=== PATIENT | female | born 1990 | race Caucasian/White ===

== ENCOUNTER 2023-10-21 13:04 | Outpatient (RCR) | payer OTHER, SELFPAY ==
[2023-10-21 13:10] VITALS: BP 107/60
[2023-10-21] MEDS: INJECTAFER 265 MG IV (13:42)
[2023-10-21 13:46] VITALS: BMI 28.5
[2023-10-21 14:25] VITALS: BP 96/45
== END 2023-10-22 09:30 | disposition home or self-care (01) ==
LOC: OID 13:04
PROVIDERS: ATTENDING PHYSICIAN Family Medicine; FAMILY PHYSICIAN Family Medicine
DX: D50.0 Iron deficiency anemia secondary to blood loss (chronic) (principal); N92.0 Excessive and frequent menstruation with regular cycle
CPT/HCPCS: 96365; J1439

== ENCOUNTER 2023-10-28 13:43 | Outpatient (RCR) | payer OTHER, SELFPAY ==
[2023-10-28 13:50] VITALS: BP 105/42
[2023-10-28] MEDS: INJECTAFER 265 MG IV (14:13)
[2023-10-28 14:50] VITALS: BP 93/47
== END 2023-10-29 10:12 | disposition home or self-care (01) ==
LOC: OID 13:43
PROVIDERS: ATTENDING PHYSICIAN Family Medicine; FAMILY PHYSICIAN Family Medicine
DX: D50.0 Iron deficiency anemia secondary to blood loss (chronic) (principal); N92.0 Excessive and frequent menstruation with regular cycle
CPT/HCPCS: 96365; J1439

== ENCOUNTER 2024-02-25 09:24 | Emergency (ER) | payer OTHER, SELFPAY ==
[2024-02-25] VITALS (7 sets, daily range): BP systolic 87–106; BP diastolic 51–64
--- NOTE | 2024-02-25 09:56 | ED.GENMED ---
History of Present Illness
<Nelida Chamberlain PA-C - Last Filed: 02/25/24 18:27>
General
Chief Complaint: Abdominal Symptoms
Source: patient and family
Exam Limitations: non verbal-adult and developmental stage
Time Seen by Provider: 02/25/24 09:43
Nursing documentation reviewed up to this point in time: agreed with
History of Present Illness
History of Present Illness:
33 y/o F with h/o downs syndrome
adenomyosis, menorrhagia
anemia
primary historian is mother
this is a well cared for 33 y/o F with 5-6 days of dry heaivng/mucus that she was bringing up here and there but she was still eating, not coughing
but then last night she started having a fever, more vomiting/less appetite and sore throat
pt had aleve last night before bed but didn't sleep all night becuase she was uncomfortable
she also is c/o abdomianl pain
pt has not had BM in a week sometimes she is constipated but not usually
mom wasn't sure if there was something going on with her bowels or if this was infection
Past History
<ADRIAN Espinoza Last Filed: 02/25/24 18:27>
Past History
ED Past Medical History: Hypothyroidism, Other (downs syndrome) and Other (Iron deficiency anemia)
Social History
Tobacco: Non-smoker
Alcohol: None
Drug: None
Living: with family
Employment: Employed
Family History
Family History: CAD
Review of Systems
<ADRIAN Espinoza Last Filed: 02/25/24 18:27>
Review of Systems
Allergies reviewed?: Yes
Unable to obtain full review of systems at this time due to: non-verbal
All Other Systems: Not applicable
Phy Exam
<Nelida Chamberlain PA-C - Last Filed: 02/25/24 18:27>
Physical Exam
Physical Exam:
GENERAL: Alert , in no apparent distress, downs syndrome
EYE: pupils equal and reactive
NECK: Supple
ENT: very erytheamtous swollen tonsils and mildly swollen uvula; no exudate
CARDIAC: Regular rate and rhythm .
LUNGS: Clear breath sounds bilaterally, no acute respiratory distress, no wheezes/rales/rhonchi
ABDOMEN: Soft, mild tednerness, no focal tenderness; no r/g, no cvat, normal bowel sounds
NEUROLOGICAL: Alert and oriented, no focal neuro deficits
SKIN: Warm and dry, skin intact.
scarlatina rash, sandpapery to face and chest
MUSCULOSKELETAL: No edema, well perfused.
PSYCH: Normal and appropriate interaction.downs
Course
<Nelida Chamberlain PA-C - Last Filed: 02/25/24 18:27>
Orders/Labs/Results
Orders:
Orders
02/25/24 09:53
0.9% Sodium Chloride 1000 ml [Nss] 1,000 ml IV BOLUS
Ketorolac [Toradol] 15 mg IV NOW STA
Ondansetron Injectable [Zofran] 4 mg IV NOW STA
02/25/24 10:27
COVID-19 Antigen Urgent
Source: Nasal Swab
Complete Blood Count/With Diff Urgent
Lactic Acid Q4H
Comment: CANCEL 2nd LACTIC ACID IF 1st LACTIC ACID IS LESS THAN 2
Monotest Urgent
Influenza A+B Rapid Molecular Urgent
KATERINE Source: Nasal Swab
Specimen Description:
02/25/24 10:35
Rapid Strep Group A Urgent
KATERINE Source: Throat/Pharynx
Specimen Description:
Date Specimen was Collected: 02/25/24
Time Specimen was Collected: 10:34
02/25/24 10:58
Comprehensive Metabolic Panel Urgent
Free T4 Urgent
Lipase Urgent
TSH Reflex To Free T4 Urgent
02/25/24 10:59
Abdominal Series [CR Obstruct Series W/pa Chest] Urgent
Comment:
Reason For Exam: constipated, vomting
02/25/24 11:10
Dexamethasone Sod Phosphate [Decadron] 10 mg IV NOW STA
02/25/24 11:52
CT Abd/pel W Iv And Oral Contr Urgent
Comment:
Reason For Exam: abd pain, nauesa, constipatoin x 1 week
Iohexol [Omnipaque] See Protocol PO NOW STA
02/25/24 13:50
Amoxicillin [Amoxil] 500 mg PO NOW STA
Abnormal Lab Results
02/25/24 02/25/24
10:27 10:58
WBC 13.8 H 10^3/uL
(4.8-10.8)
RBC 4.08 L 10^6/uL
(4.20-5.40)
Hct 34.9 L %
(37.0-47.0)
Abs Immat Gran (auto) 0.1 H 10^3/uL
(0-0.05)
Absolute Neuts (auto) 12.0 H 10^3/uL
(1.4-6.5)
Absolute Lymphs (auto) 0.7 L 10^3/uL
(1.2-3.4)
Absolute Monos (auto) 0.8 H 10^3/uL
(0.1-0.6)
Immature Gran % 0.6 H %
(0-0.5)
Neutrophils % 86.9 H %
(42.2-75.2)
Lymphocytes % 5.4 L %
(20.5-51.1)
Carbon Dioxide 19 L mmol/L
(22-30)
Glucose 100 H mg/dl
(70-99)
Total Protein 5.9 L g/dl
(6.3-8.2)
Albumin 3.2 L g/dl
(3.5-5.0)
TSH (Reflex) 0.10 L uIU/ml
(0.47-4.68)
Free T4 2.20 H ng/dl
(0.78-2.19)
02/25/24 10:27
02/25/24 10:58
Vital Signs
Initial and Last Documented VS:
Initial Vital Signs
Temp Pulse Resp BP Pulse Ox
98.3 F 87 18 87/51 100
02/25/24 09:27 02/25/24 09:27 02/25/24 09:27 02/25/24 09:27 02/25/24 09:27
Last Documented Vital Signs
Temp Pulse Resp BP Pulse Ox
98.3 F 66 16 105/64 97
02/25/24 09:27 02/25/24 15:10 02/25/24 15:10 02/25/24 15:10 02/25/24 15:10
<Armando Nair MD - Last Filed: 02/25/24 13:57>
Orders/Labs/Results
Orders:
Orders
02/25/24 09:53
0.9% Sodium Chloride 1000 ml [Nss] 1,000 ml IV BOLUS
Ketorolac [Toradol] 15 mg IV NOW STA
Ondansetron Injectable [Zofran] 4 mg IV NOW STA
02/25/24 10:27
COVID-19 Antigen Urgent
Source: Nasal Swab
Complete Blood Count/With Diff Urgent
Lactic Acid Q4H
Comment: CANCEL 2nd LACTIC ACID IF 1st LACTIC ACID IS LESS THAN 2
Monotest Urgent
Influenza A+B Rapid Molecular Urgent
KATERINE Source: Nasal Swab
Specimen Description:
02/25/24 10:35
Rapid Strep Group A Urgent
KATERINE Source: Throat/Pharynx
Specimen Description:
Date Specimen was Collected: 02/25/24
Time Specimen was Collected: 10:34
02/25/24 10:58
Comprehensive Metabolic Panel Urgent
Free T4 Urgent
Lipase Urgent
TSH Reflex To Free T4 Urgent
02/25/24 10:59
Abdominal Series [CR Obstruct Series W/pa Chest] Urgent
Comment:
Reason For Exam: constipated, vomting
02/25/24 11:10
Dexamethasone Sod Phosphate [Decadron] 10 mg IV NOW STA
02/25/24 11:52
CT Abd/pel W Iv And Oral Contr Urgent
Comment:
Reason For Exam: abd pain, nauesa, constipatoin x 1 week
Iohexol [Omnipaque] See Protocol PO NOW STA
02/25/24 13:50
Amoxicillin [Amoxil] 500 mg PO NOW STA
Abnormal Lab Results
02/25/24 02/25/24
10:27 10:58
WBC 13.8 H 10^3/uL
(4.8-10.8)
RBC 4.08 L 10^6/uL
(4.20-5.40)
Hct 34.9 L %
(37.0-47.0)
Abs Immat Gran (auto) 0.1 H 10^3/uL
(0-0.05)
Absolute Neuts (auto) 12.0 H 10^3/uL
(1.4-6.5)
Absolute Lymphs (auto) 0.7 L 10^3/uL
(1.2-3.4)
Absolute Monos (auto) 0.8 H 10^3/uL
(0.1-0.6)
Immature Gran % 0.6 H %
(0-0.5)
Neutrophils % 86.9 H %
(42.2-75.2)
Lymphocytes % 5.4 L %
(20.5-51.1)
Carbon Dioxide 19 L mmol/L
(22-30)
Glucose 100 H mg/dl
(70-99)
Total Protein 5.9 L g/dl
(6.3-8.2)
Albumin 3.2 L g/dl
(3.5-5.0)
TSH (Reflex) 0.10 L uIU/ml
(0.47-4.68)
Free T4 2.20 H ng/dl
(0.78-2.19)
02/25/24 10:27
02/25/24 10:58
Vital Signs
Initial and Last Documented VS:
Initial Vital Signs
Temp Pulse Resp BP Pulse Ox
98.3 F 87 18 87/51 100
02/25/24 09:27 02/25/24 09:27 02/25/24 09:27 02/25/24 09:27 02/25/24 09:27
Last Documented Vital Signs
Temp Pulse Resp BP Pulse Ox
98.3 F 66 16 105/64 97
02/25/24 09:27 02/25/24 15:10 02/25/24 15:10 02/25/24 15:10 02/25/24 15:10
<Nelida Chamberlain PA-C - Last Filed: 02/25/24 18:27>
MDM/Problems Addressed
Differential Diagnosis Includes:
strep, covid, flu, constipation, viral syndrome, mono, appendicitis, bowel obstruction
MDM/Problems Addressed:
33 y/o F
downs syndrome
severe adnenomyosis
here with some mild GI sxs x 1 week, dec stool and some occ spitting up mucus
then fever, sore throat last night
on exam today afebrile
bp low but stable for her
scarletina rash on face and chst
pharynx erythematous, mildly swollen, symmetric tonsils
abd mild diffuse tendenress
RAPID STREP POS
decadron and amox for strep
pt given IVF
mom very concerned about abdominal symptoms and lack of stool
obs series shows constipation
planning on d/c with miralax but mom would feel more comfortable with ct
po porepattempted and she got 3/4 of a cup down
pt has stool in colon, no obstruction
incidental mild bilateral hydro without obstruction
d/w ed attending dr. nair who is aware, this can be fu outpatient
mom given copy of report
d/c home
<Nelida Chamberlain PA-C - Last Filed: 02/25/24 18:27>
*Critical Care Note
Total Time (30-74mins, 75-104mins- exclusive of procedures): Not Applicable
ED Attending Note
<Nelida Chamberlain PA-C - Last Filed: 02/25/24 18:27>
-
Portions of this chart may have been created with voice recognition software.� Occasional wrong word or��sound alike� substitutions may have occurred due to the inherent limitations of voice recognition software.
<Armando Nair MD - Last Filed: 02/25/24 13:57>
ED Attending Note
Patient seen and examined by attending physician: Yes
I performed the substantive portion of visit, reviewed & personally made and approve the management plan that is documented in note by myself or GRIFFIN.: Yes
ED Attending Note:
33-year-old female with ongoing abdominal issues for about 10 days with some constipation and vague abdominal discomfort. Although mom states she chronically complains of abdominal issues whenever asked about pain. The last few days she has had a
sore throat and fever.
On exam patient is nontoxic in no distress. History of Down syndrome. Warm and dry perfusing well. Diffuse tonsillar and posterior pharyngeal erythema. No abscess no asymmetrical swelling. No drooling stridor trismus or speech changes. Neck is
supple. Lungs are clear and equal. Heart regular rate and rhythm with mild minimal midsystolic murmur. Abdomen soft. No rebound or guarding no mass or hernia. Mild nonlocalizing tenderness.
Labs are stable. Strep is positive. CT scan is pending. If negative for acute process patient will be discharged with management of her strep infection. If CT is positive this issue will be addressed
Discharge Plan
Departure
Patient Disposition: Home (Routine Discharge)
Date of Disposition: 02/25/24
Time of Disposition: 14:50
Patient with high blood pressure during this ER visit?: No
Condition: Fair
Discharge Problem:
Strep pharyngitis, Scarlet fever
Instructions: Scarlet fever, Strep Throat ED
Prescriptions:
New
amoxicillin 500 mg capsule
500 mg PO Q8H Qty: 30 0RF
ondansetron 4 mg tablet,disintegrating
4 mg PO Q8H PRN (Reason: nausea and vomiting) Qty: 4 0RF
No Action
levothyroxine [Synthroid] 125 mcg Tablet
125 mcg PO .QSTTHSA
levothyroxine 150 mcg Tablet
150 mcg PO .QMWF
Referrals:
Fabien May MD [Family Provider] - Follow up in 2-3 days
Activity Restrictions/Additional Instructions:
JORDAN HAS STREP THROAT
GIVE HER AMOXICILLIN 3 TIMES A DAY FOR 10 DAYS
ENCOURAGE FLUIDS (SOLIDS MAY BE MORE PAINFUL)
TYLENOL AND MOTRIN FOR PAIN NEEDED
THE CAT SCAN SHOWS A LARGE AMOUNT OF STOOL IN HER COLON
YOU CAN TRY A LAXATIVE IN THE NEXT DAY OR TWO IF SHE DOESN'T MOVE HER BOWELS - THE ORAL CONTRAST SOMETIMES HELPS WITH THAT SO I'D WAIT A DAY BEOFRE TRYING MIRALAX
IF YOU DO USE MIRALAX - YOU CAN DO 1 CAPFULL IN 8 OZ WATER OR GATORADE ONCE OR EVEN TWICE AD AY FOR 3 DAYS IN A ROW NEEDED
SHE ALSO INCIDENTALLY HAS SOME MILD SWELLING AROUND HER KIDNEYS - THIS CAN BE FROM REFLUX OF URINE OR CHRONIC MILD OBSTRUCTION OF THE URETERS THAT DRAIN THE KIDNEYS
THIS IS NOT CAUSING ANY PAIN - BUT IT SHOULD BE FOLLOWED UP
THE RASH SHOULD SUBSIDE
SHE WAS GIVEN A DOSE OF STEROIDS FOR THE THROAT PAIN
IF SHE HAS NAUSEA/VOMITING SHE CAN TRY A DOSE OF ZOFRAN EVERY 8 HOURS NEEDED - IF SHE CONTINUES TO VOMIT, SHE SHOULD BE REEVALAUTED
RETURN FOR ANY CONCERNS.
Interventions
Interventions:
*Risk Screen - Suicide Last Done: 02/25/24 09:27
*General Assessment Last Done: 02/25/24 09:27
*Neglect/Abuse Screening Last Done: 02/25/24 09:27
ED- Fall Risk Assessment Last Done: 02/25/24 15:11
*ED COVID-19 Vaccine History Last Done: 02/25/24 09:49
*Nursing Disposition Last Done: 02/25/24 15:11
TN-Eyksbx-Vcpqdlcqft Assessment Last Done: 02/25/24 09:49
Discharge Date and Time
Discharge Date/Time: 02/25/24 15:18
Print Language: SERBIAN
[2024-02-25] MEDS: TORADOL 15 MG IV (10:30)
[2024-02-25] MEDS: ZOFRAN 4 MG IV (10:30)
[2024-02-25] MEDS: NSS 1000 IV (10:31)
[2024-02-25 10:37] LABS: % Basophils 0.6 % (0-2); % Eosinophils 0.5 % (0-6); % Immature Granulocytes 0.6 % (0-0.5); % Lymphocytes 5.4 % (20.5-51.1); % Neutrophils 86.9 % (42.2-75.2); Absolute Basophils 0.1 10^3/uL (0-0.2); Absolute Eosinophils 0.1 10^3/uL (0-0.7); Absolute Immature Granulocytes 0.1 10^3/uL (0-0.05); Absolute Lymphocytes 0.7 10^3/uL (1.2-3.4); Absolute Monocytes 0.8 10^3/uL (0.1-0.6); Hematocrit 34.9 % (37.0-47.0); Hemoglobin 12.2 g/dL (12.0-16.0); Mean Corpuscular Hgb 29.9 pg (27.0-31.0); Mean Corpuscular Volume 85.5 fL (81.0-99.0); Mean Platelet Volume 8.9 fL (7.4-10.4); Nucleated Red Blood Cells % 0 %; Platelet Count 266 10^3/uL (130-400); Red Blood Cell Count 4.08 10^6/uL (4.20-5.40); Red Cell Dist. Width 14.5 % (11.5-14.5); White Blood Cell Count 13.8 10^3/uL (4.8-10.8)
[2024-02-25 10:59] LABS: COVID-19 Antigen Negative (Negative)
[2024-02-25 11:02] LABS: Lactic Acid 0.9 mmol/L (0.7-2.0)
[2024-02-25 11:14] LABS: Monotest Negative (Negative)
[2024-02-25] MEDS: DECADRON 10 MG IV (11:14)
[2024-02-25 11:27] LABS: ALT (SGPT) 17 U/L (0-35); AST (SGOT) 25 U/L (14-36); Albumin 3.2 g/dl (3.5-5.0); Alkaline Phosphatase 87 U/L (38-126); Blood Urea Nitrogen 13 mg/dl (7-17); Calcium 8.5 mg/dl (8.4-10.2); Carbon Dioxide 19 mmol/L (22-30); Chloride 106 mmol/L (98-107); Glucose 100 mg/dl (70-99); Lipase 27 U/L (23-300); Potassium 4.1 mmol/L (3.5-5.1); Sodium 137 mmol/L (135-145); Total Bilirubin 1.2 mg/dl (0.2-1.3); Total Protein 5.9 g/dl (6.3-8.2); eGFR > 60.00
[2024-02-25] MEDS: OMNIPAQUE 25 ML PO (12:02)
[2024-02-25] MEDS: AMOXIL 500 MG PO (14:09)
== END 2024-02-25 15:18 | disposition home or self-care (01) ==
LOC: EMR 09:24
PROVIDERS: Physician Assistant; EMERGENCY PHYSICIAN Emergency Medicine; FAMILY PHYSICIAN Family Medicine
DX: A38.9 Scarlet fever, uncomplicated (principal); J02.0 Streptococcal pharyngitis; K59.00 Constipation, unspecified; R10.9 Unspecified abdominal pain; R11.10 Vomiting, unspecified; Z11.52 Encounter for screening for COVID-19; R01.1 Cardiac murmur, unspecified; Q90.9 Down syndrome, unspecified; D50.9 Iron deficiency anemia, unspecified; E03.9 Hypothyroidism, unspecified; Z88.1 Allergy status to other antibiotic agents; Z88.5 Allergy status to narcotic agent
CPT/HCPCS: 99284; 96375 ×2; 96361; 96374; 74022; 74177; 80053; 83605; 83690; 84439; 84443; 85025; 86308; 87070; 87502; 87811; 87880; Q9967

== ENCOUNTER 2024-03-05 02:40 | Emergency (ER) | payer OTHER, SELFPAY ==
[2024-03-05 02:40] VITALS: BMI 28.1
[2024-03-05 02:43] VITALS: BP 135/83
[2024-03-05 03:59] LABS: % Basophils 0.8 % (0-2); % Eosinophils 0.8 % (0-6); % Immature Granulocytes 0.5 % (0-0.5); % Lymphocytes 13.6 % (20.5-51.1); % Monocytes 5.2 % (1.7-9.3); % Neutrophils 79.1 % (42.2-75.2); Absolute Basophils 0.1 10^3/uL (0-0.2); Absolute Eosinophils 0.1 10^3/uL (0-0.7); Absolute Lymphocytes 1.2 10^3/uL (1.2-3.4); Absolute Monocytes 0.5 10^3/uL (0.1-0.6); Absolute Neutrophils 6.8 10^3/uL (1.4-6.5); Hemoglobin 12.5 g/dL (12.0-16.0); Mean Corp Hgb Conc. 33.8 g/dL (33.0-37.0); Mean Platelet Volume 8.5 fL (7.4-10.4); Nucleated Red Blood Cells % 0 %; Platelet Count 456 10^3/uL (130-400); Red Blood Cell Count 4.46 10^6/uL (4.20-5.40); Red Cell Dist. Width 14.4 % (11.5-14.5); White Blood Cell Count 8.6 10^3/uL (4.8-10.8)
[2024-03-05 04:15] LABS: ALT (SGPT) 16 U/L (0-35); AST (SGOT) 19 U/L (14-36); Albumin 3.9 g/dl (3.5-5.0); Alkaline Phosphatase 102 U/L (38-126); Blood Urea Nitrogen 17 mg/dl (7-17); Calcium 9.2 mg/dl (8.4-10.2); Carbon Dioxide 27 mmol/L (22-30); Chloride 102 mmol/L (98-107); Estimated Creatinine Clearance 79 ml/min; Glucose 126 mg/dl (70-99); Potassium 4.2 mmol/L (3.5-5.1); Sodium 139 mmol/L (135-145); Total Bilirubin 0.3 mg/dl (0.2-1.3); Total Protein 6.8 g/dl (6.3-8.2); eGFR > 60.00
[2024-03-05 04:57] LABS: Urine Albumin Negative (Neg - Trace); Urine Bilirubin Negative (Negative); Urine Character Slightly Cloudy (Clear); Urine Color Amber; Urine Glucose Negative (Negative); Urine Ketone Negative (Negative); Urine Leukocyte Trace (Negative); Urine Nitrite Negative (Negative); Urine Occult Blood Negative (Negative); Urine Urobilinogen Negative (Neg - 1+)
[2024-03-05 06:15] LABS: Urine Mucus Moderate; Urine Red Blood Cell >100 /HPF (0-2); Urine Squamous Cell >30 /LPF (Few)
[2024-03-05 06:17] LABS: Urine Bacteria Many (Negative)
--- NOTE | 2024-03-05 06:42 | ED.GENMED ---
History of Present Illness
General
Chief Complaint: Abdominal Symptoms
Source: patient and family (Mom and dad)
Exam Limitations: developmental stage
Time Seen by Provider: 03/05/24 04:43
Nursing documentation reviewed up to this point in time: agreed with
History of Present Illness
History of Present Illness:
33-year-old female with past medical history of Down syndrome with developmental delay, GERD, adenomyosis who presents to the emergency room with mother and father for evaluation of nausea with dry heaving and constipation. Patient has been dealing
with constipation according to parents for the past 2 to 4 weeks. It has been generally getting worse. Last week he started also having a sore throat and was seen in this emergency room and had positive strep swab was diagnosed with strep and
started on amoxicillin. Was also instructed to use MiraLAX for constipation. Parents say that over the past week with antibiotics sore throat seems to have improved but constipation has continued�they say that she has not had a substantial bowel
movement and is only passing occasional liquid and soft specks of stool. She has been straining a lot to have bowel movements. Last night even passed some blood and clot with stool. In addition to constipation patient has also had nausea and dry
heaving�this has been ongoing for the past 2 weeks. No vomiting just brings up some mucus. She also will occasionally cry out complaining of some abdominal pain. Apparently tonight was also complaining that her 'pee pee hurts.' She is still
making good urine according to parents. They brought her back to the emergency room to be assessed. They have not noted any fever. No respiratory issues. No vaginal bleeding. No other complaints.
Past History
Past History
ED Past Medical History: Hypothyroidism, Other (downs syndrome) and Other (Iron deficiency anemia)
Social History
Tobacco: Non-smoker
Alcohol: None
Drug: None
Living: with family
Employment: Employed
Family History
Family History: CAD
Review of Systems
Review of Systems
All Other Systems: ROS reviewed and negative except as documented in HPI and ROS
Constitutional: Denies fever
Respiratory: Denies trouble breathing
Cardiac: Denies chest pain
ABD/GI: Reports abdominal pain, nausea, vomiting and constipated; Denies diarrhea
: Reports dysuria
Musculoskeletal: Denies back pain
Neurological: Denies headache
Phy Exam
Physical Exam
Physical Exam:
General: Resting comfortably in bed not in distress
Head: Normocephalic, atraumatic
Eyes: Conjunctiva normal, sclera anicteric
Throat: Airway intact, handling secretions
Neck: Trachea midline, supple without meningismus
Lungs: Clear to auscultation bilaterally, no wheezing, rales, rhonchi
Heart: Regular rate and rhythm, no murmurs, gallops, or rubs
Abd: Soft, non distended, nontender, no masses
Neuro: No gross deficits
Extremities: Warm well-perfused
Scores
Heart Failure Risk
Heart Failure Risk Score: Not Applicable
Heart Score for Chest Pain Patients
STEMI patient?: Not applicable
Withdrawal Assessment of Alcohol
Withdrawal Assessment Completed?: Not applicable
Course
Orders/Labs/Results
Orders:
Orders
03/05/24 03:50
Complete Blood Count/With Diff Urgent
Comprehensive Metabolic Panel Urgent
TSH Reflex To Free T4 Urgent
Comment: ADD ON
03/05/24 04:32
Urinalysis Reflex To Culture Urgent
Date Specimen was Collected: 03/05/24
Time Specimen was Collected: 04:31
Urine Microscopic Reflex Cult Urgent
Urine Culture Urgent
KATERINE Source: U
Specimen Description:
Date Specimen was Collected: 03/05/24
Time Specimen was Collected: 04:31
03/05/24 05:22
CT Abd/pelvis W Iv Cont Urgent
Comment:
Reason For Exam: worsening abd pain, constipation, nausea/vomiting
03/05/24 05:23
Add On- LAB Urgent
Tests Added?: TSH reflex free T4
03/05/24 06:55
Enema- Treatment ONCE
Type: Milk of Molasses
Abnormal Lab Results
03/05/24 03/05/24
03:50 04:32
Plt Count 456 H 10^3/uL
(130-400)
Absolute Neuts (auto) 6.8 H 10^3/uL
(1.4-6.5)
Neutrophils % 79.1 H %
(42.2-75.2)
Lymphocytes % 13.6 L %
(20.5-51.1)
Glucose 126 H mg/dl
(70-99)
Leukocyte Esterase Rfl Trace A
(Negative)
Urine RBC >100 A /HPF
(0-2)
Urine Bacteria (Reflex) Many A
(Negative)
03/05/24 03:50
03/05/24 03:50
Vital Signs
Initial and Last Documented VS:
Initial Vital Signs
Temp Pulse Resp BP Pulse Ox
36.8 C 70 22 135/83 99
03/05/24 02:43 03/05/24 02:43 03/05/24 02:43 03/05/24 02:43 03/05/24 02:43
Last Documented Vital Signs
Temp Pulse Resp BP Pulse Ox
36.8 C 70 22 135/83 96
03/05/24 02:43 03/05/24 02:43 03/05/24 02:43 03/05/24 02:43 03/05/24 03:30
MDM/Problems Addressed
Differential Diagnosis Includes:
Constipation, fecal impaction, colitis, UTI
MDM/Problems Addressed:
33-year-old female returns to the emergency room with continued constipation, nausea with dry heaving and occasional complaints of abdominal pain. Vitals and exam as above. Plan to check labs including a CBC and a CMP, thyroid studies, urinalysis.
Check repeat CT abdomen pelvis. Monitor closely reassess after the above.
Labs reviewed: CBC unremarkable, CMP no clinically significant abnormalities. Urinalysis appears likely contaminated although with her complaining of dysuria reasonable to cover with antibiotics. CT abdomen pelvis shows ovarian cyst there is also
question of ruptured ovarian cyst. She has this mild right hydroureter without obstructing stone could be related to pelvic cysts causing mass effect. She has normal renal function today, this is unlikely of acute clinical significance but can
follow-up with PCP for this. She does have moderate rectal stool ball at home and colonic stool volume. My suspicion is that she likely has rectal stool impaction. Will trial enema here and reassess.
Patient had large bowel movement with enema. Will plan to start more aggressive bowel regimen. Stable for discharge. Follow-up with PCP; patient is also known to Dr. Caputo from prior visits I think it would be reasonable to follow-up with
worsening constipation�family questions whether there could be some anatomic issue causing constipation with her uterine issues. Spoke about return precautions all questions answered.
Chronic conditions affecting care:
Down syndrome
*Radiology
Radiology exam reviewed: radiology read reviewed
*Pulse Oximetry
Patient hypoxic: no
*Critical Care Note
Total Time (30-74mins, 75-104mins- exclusive of procedures): Not Applicable
Data Reviewed
Source: patient, records and family
ED Attending Note
-
Portions of this chart may have been created with voice recognition software.� Occasional wrong word or��sound alike� substitutions may have occurred due to the inherent limitations of voice recognition software.
Discharge Plan
Departure
Patient Disposition: Home (Routine Discharge)
Date of Disposition: 03/05/24
Time of Disposition: 07:53
Patient with high blood pressure during this ER visit?: No
Discharge Problem:
Constipation, Fecal impaction
Instructions: Constipation, Adult ED
Prescriptions:
New
docusate sodium [Colace] 100 mg capsule
100 mg PO DAILY Qty: 30 0RF
polyethylene glycol 3350 [Miralax] 17 gram/dose powder
4 g PO DAILY Qty: 850 0RF
No Action
levothyroxine [Synthroid] 125 mcg Tablet
125 mcg PO .QSTTHSA
levothyroxine 150 mcg Tablet
150 mcg PO .QMWF
amoxicillin 500 mg capsule
500 mg PO Q8H Qty: 30 0RF
ondansetron 4 mg tablet,disintegrating
4 mg PO Q8H PRN (Reason: nausea and vomiting) Qty: 4 0RF
Referrals:
Fabien May MD [Family Provider] -
Derek Caputo MD [Active] - Call in 1-3 days for appt
Activity Restrictions/Additional Instructions:
Thank you for visiting the Emergency Department at [facility].
1. Please schedule a follow up appointment as directed. Call first thing tomorrow morning to make an appointment.
2. If indicated, please take your medications as instructed and indicated on discharge paperwork.
3. If any of your symptoms do not improve, or persist, or become more severe within 6-12 hours, please return to the emergency department for further care.
4. Please return to the emergency department if you develop a headache, neck pain/stiffness, fever greater than 100.4F, chest pain, shortness of breath, persistent nausea, vomiting, slurred speech, difficulty walking, numbness/tingling, weakness,
signs of infection or any other symptoms that are worrisome to you.
Please call [phone] if you have any questions.
Interventions
Interventions:
*Risk Screen - Suicide Last Done: 03/05/24 02:43
*General Assessment Last Done: 03/05/24 02:53
*Neglect/Abuse Screening Last Done: 03/05/24 02:53
*ED COVID-19 Vaccine History Last Done: 03/05/24 02:54
NP-Zvigql-Xletneqffe Assessment Last Done: 03/05/24 03:24
Discharge Date and Time
Print Language: LAO
[2024-03-05 06:54] LABS: TSH Reflex To Free T4 0.82 uIU/ml (0.47-4.68)
[2024-03-05] MEDS: CITROMA 300 ML PO (08:11)
== END 2024-03-05 08:34 | disposition home or self-care (01) ==
LOC: EMR 02:40
PROVIDERS: EMERGENCY PHYSICIAN Emergency Medicine; FAMILY PHYSICIAN Family Medicine
DX: K56.41 Fecal impaction (principal); R11.2 Nausea with vomiting, unspecified; K92.1 Melena; R10.9 Unspecified abdominal pain; R30.0 Dysuria; N13.4 Hydroureter; N83.209 Unspecified ovarian cyst, unspecified side; Q90.9 Down syndrome, unspecified; K21.9 Gastro-esophageal reflux disease without esophagitis; N80.03 Adenomyosis of the uterus; B95.5 Unspecified streptococcus as the cause of diseases classified elsewhere; E03.9 Hypothyroidism, unspecified; D50.9 Iron deficiency anemia, unspecified; Z88.1 Allergy status to other antibiotic agents; Z88.5 Allergy status to narcotic agent
CPT/HCPCS: 99284; 74177; 80053; 81003; 81015; 84443; 85025; 87086; Q9967

== ENCOUNTER 2024-06-02 10:33 | Outpatient (RCR) | payer OTHER, SELFPAY ==
[2024-05-26 10:20] VITALS: BP 113/50
[2024-05-26] MEDS: INJECTAFER 265 MG IV (10:25)
[2024-05-26 11:08] VITALS: BP 87/44
[2024-05-26 11:30] VITALS: BP 105/43
[2024-06-02 10:45] VITALS: BP 99/63
[2024-06-02] MEDS: INJECTAFER 265 MG IV (10:54)
[2024-06-02 11:30] VITALS: BP 91/53
== END 2024-06-05 10:32 | disposition home or self-care (01) ==
LOC: OID 10:33
PROVIDERS: ATTENDING PHYSICIAN Family Medicine
DX: D50.9 Iron deficiency anemia, unspecified (principal); Q90.9 Down syndrome, unspecified
CPT/HCPCS: 96365; J1439

== ENCOUNTER → 2024-06-23 14:24 | Outpatient (REF) | payer OTHER, SELFPAY | LOC: PAVMRI 14:24 | PROVIDERS: ATTENDING PHYSICIAN Family Medicine | DX: R41.82 Altered mental status, unspecified (principal); Q90.9 Down syndrome, unspecified | CPT/HCPCS: 70551 ==

== ENCOUNTER → 2024-06-27 15:35 | Outpatient (REF) | payer OTHER, SELFPAY | LOC: RCS 15:35 | PROVIDERS: ATTENDING PHYSICIAN Family Medicine | DX: R01.1 Cardiac murmur, unspecified (principal) | CPT/HCPCS: 93306 ==

== ENCOUNTER 2024-10-02 16:51 | Emergency (ER) | payer OTHER, SELFPAY ==
[2024-10-02 17:08] VITALS: BP 118/48
[2024-10-02 17:41] LABS: % Basophils 0.7 % (0-2); % Eosinophils 2.1 % (0-6); % Immature Granulocytes 0.1 % (0-0.5); % Lymphocytes 20.2 % (20.5-51.1); % Monocytes 9.3 % (1.7-9.3); % Neutrophils 67.6 % (42.2-75.2); Absolute Basophils 0.1 10^3/uL (0-0.2); Absolute Eosinophils 0.2 10^3/uL (0-0.7); Absolute Lymphocytes 1.6 10^3/uL (1.2-3.4); Absolute Monocytes 0.8 10^3/uL (0.1-0.6); Absolute Neutrophils 5.5 10^3/uL (1.4-6.5); Hemoglobin 12.7 g/dL (12.0-16.0); Mean Corp Hgb Conc. 33.4 g/dL (33.0-37.0); Mean Corpuscular Volume 92.7 fL (81.0-99.0); Mean Platelet Volume 8.8 fL (7.4-10.4); Nucleated Red Blood Cells % 0 %; Platelet Count 352 10^3/uL (130-400); Red Cell Dist. Width 13.1 % (11.5-14.5); White Blood Cell Count 8.1 10^3/uL (4.8-10.8)
[2024-10-02 17:46] LABS: ALT (SGPT) 16 U/L (0-35); AST (SGOT) 20 U/L (14-36); Albumin 3.9 g/dl (3.5-5.0); Alkaline Phosphatase 83 U/L (38-126); Blood Urea Nitrogen 20 mg/dl (7-17); Calcium 8.8 mg/dl (8.4-10.2); Carbon Dioxide 24 mmol/L (22-30); Chloride 109 mmol/L (98-107); Glucose 93 mg/dl (70-99); Potassium 4.1 mmol/L (3.5-5.1); Sodium 138 mmol/L (135-145); Total Protein 6.7 g/dl (6.3-8.2); eGFR > 60.00
--- NOTE | 2024-10-02 19:14 | ED.GENMED ---
History of Present Illness
General
Chief Complaint: Ear Problem
Source: patient and family
Exam Limitations: none
Time Seen by Provider: 10/02/24 19:00
Nursing documentation reviewed up to this point in time: agreed with
History of Present Illness
History of Present Illness:
Patient with history of autism, presents to ED secondary to intermittent right ear pain with hearing loss over the past 2 weeks. Patient was initially seen at urgent care center where she was diagnosed with impacted earwax. Disimpaction was
unsuccessful and she was subsequently started on Debrox solution, with significant removal of earwax at home. Patient's symptoms improved shortly afterwards, with continual removal of earwax. However, over the past couple days, ear pain has
returned with decreased hearing. Denies fever or chills. Denies nausea or vomiting. Denies trauma.
Past History
Past History
ED Past Medical History: Hypothyroidism, Other (downs syndrome) and Other (Iron deficiency anemia)
Social History
Tobacco: Non-smoker
Alcohol: None
Drug: None
Living: with family
Employment: Employed
Family History
Family History: CAD
Review of Systems
Review of Systems
Allergies reviewed?: Yes
All Other Systems: ROS reviewed and negative except as documented in HPI and ROS
Constitutional: Reports no symptoms; Denies fever
EENT: Reports other (right ear pain w hearing loss)
ABD/GI: Reports no symptoms; Denies vomiting
Skin: Reports no symptoms
Neurological: Reports no symptoms
Phy Exam
Physical Exam
Physical Exam:
Physical Exam
General: no apparent distress, not acutely ill. afebrile
Head: nc/at. eom
Ear: left tm normal. right tm, unable to be visualize due to effusion.
Neck: supple. normal range of motion
Abdomen: normal bowel sounds. not tender.
Neuro: alert and oriented. no focal neurological deficits
Skin: no rash
Psychiatric: well kept. interactive and cooperative
Extremities: no edema. no calf tenderness.
Course
Orders/Labs/Results
Orders:
Orders
10/02/24 17:24
CBC/With Diff [Complete Blood Count/With Diff] Urgent
CMP [Comprehensive Metabolic Panel] Urgent
Ferritin Urgent
Comment: ADD ON
Iron Urgent
Comment: ADD ON
10/02/24 19:14
Add On- LAB Urgent
Tests Added?: iron, ferritin
Amoxicillin [Amoxil] 500 mg PO NOW STA
Abnormal Lab Results
10/02/24
17:24
RBC 4.10 L 10^6/uL
(4.20-5.40)
Absolute Monos (auto) 0.8 H 10^3/uL
(0.1-0.6)
Lymphocytes % 20.2 L %
(20.5-51.1)
Chloride 109 H mmol/L
(98-107)
BUN 20 H mg/dl
(7-17)
Iron 31 L ug/dl
(37-170)
10/02/24 17:24
10/02/24 17:24
Vital Signs
Initial and Last Documented VS:
Initial Vital Signs
Temp Pulse Resp BP Pulse Ox
98.5 F 63 18 118/48 99
10/02/24 17:08 10/02/24 17:08 10/02/24 17:08 10/02/24 17:08 10/02/24 17:08
Last Documented Vital Signs
Temp Pulse Resp BP Pulse Ox
98.5 F 63 18 118/48 99
10/02/24 17:08 10/02/24 17:08 10/02/24 17:08 10/02/24 17:08 10/02/24 17:08
MDM/Problems Addressed
MDM/Problems Addressed:
Patient will be started on empiric antibiotic coverage via amoxicillin, which patient has taken successfully in the past. In addition, patient will be referred to ENT physician for reevaluation. Mother expresses understanding, at time of discharge
*Critical Care Note
Total Time (30-74mins, 75-104mins- exclusive of procedures): Not Applicable
ED Attending Note
-
Portions of this chart may have been created with voice recognition software.� Occasional wrong word or��sound alike� substitutions may have occurred due to the inherent limitations of voice recognition software.
Discharge Plan
Departure
Patient Disposition: Home (Routine Discharge)
Date of Disposition: 10/02/24
Time of Disposition: 19:14
Patient with high blood pressure during this ER visit?: No
Condition: Good
Discharge Problem:
Otalgia
Instructions: Ear pain - ED discharge instructions
Prescriptions:
New
amoxicillin 500 mg capsule
500 mg PO Q8H Qty: 20 0RF
No Action
levothyroxine [Synthroid] 125 mcg Tablet
125 mcg PO DAILY
docusate sodium [Colace] 100 mg capsule
100 mg PO DAILY Qty: 30 0RF
Referrals:
Heidi Noland MD [Active] -
Activity Restrictions/Additional Instructions:
As discussed, please follow-up with your primary care physician and/or referred ENT physician for further evaluation and treatment. Your prescription has been sent electronically to [facility] in [place]
Interventions
Interventions:
*Risk Screen - Suicide Last Done: 10/02/24 19:27
*General Assessment Last Done: 10/02/24 19:27
*Neglect/Abuse Screening Last Done: 10/02/24 19:27
*ED- Fall Risk Assessment Last Done: 10/02/24 19:27
*ED COVID-19 Vaccine History Last Done: 10/02/24 19:27
*Nursing Disposition Last Done: 10/02/24 19:27
Discharge Date and Time
Discharge Date/Time: 10/02/24 19:29
Print Language: SAMI
[2024-10-02] MEDS: AMOXIL 500 MG PO (19:22)
[2024-10-02 19:50] LABS: Iron 31 ug/dl (37-170)
[2024-10-02 20:25] LABS: Ferritin 11.3 ng/ml (6.24-137)
== END 2024-10-02 19:29 | disposition home or self-care (01) ==
LOC: EMR 16:51
PROVIDERS: EMERGENCY PHYSICIAN Emergency Medicine; FAMILY PHYSICIAN Family Medicine
DX: H92.01 Otalgia, right ear (principal); H91.91 Unspecified hearing loss, right ear; E03.9 Hypothyroidism, unspecified; Q90.9 Down syndrome, unspecified; D50.9 Iron deficiency anemia, unspecified; K21.9 Gastro-esophageal reflux disease without esophagitis; Z88.1 Allergy status to other antibiotic agents; Z88.5 Allergy status to narcotic agent
CPT/HCPCS: 99283; 80053; 82728; 83540; 85025

== ENCOUNTER 2024-11-16 10:34 | Outpatient (RCR) | payer MEDICARE, OTHER, SELFPAY ==
[2024-11-09 11:05] VITALS: BP 96/49
[2024-11-09] MEDS: INJECTAFER 265 MG IV (11:23)
[2024-11-09 11:32] VITALS: BMI 26.2
[2024-11-09 12:20] VITALS: BP 98/47
[2024-11-16] MEDS: INJECTAFER 265 MG IV (11:16)
[2024-11-16 12:00] VITALS: BP 125/60
== END 2024-11-17 09:15 | disposition home or self-care (01) ==
LOC: OID 10:34
PROVIDERS: ATTENDING PHYSICIAN Family Medicine
DX: D50.9 Iron deficiency anemia, unspecified (principal); E61.1 Iron deficiency; N92.0 Excessive and frequent menstruation with regular cycle
CPT/HCPCS: 96365; J1439

== ENCOUNTER 2025-02-12 16:03 | Emergency (ER) | payer OTHER, SELFPAY ==
[2025-02-12 16:05] VITALS: BP 90/60
[2025-02-12 16:39] LABS: Hematocrit 42.3 % (37.0-47.0); Hemoglobin 14.4 g/dL (12.0-16.0); Mean Corp Hgb Conc. 34.0 g/dL (33.0-37.0); Mean Corpuscular Volume 95.5 fL (81.0-99.0); Nucleated Red Blood Cells % 0 %; Platelet Count 307 10^3/uL (130-400); Red Cell Dist. Width 13.2 % (11.5-14.5)
[2025-02-12 16:55] LABS: HCG, Serum Qualitative Screen Negative
[2025-02-12 16:56] LABS: ALT (SGPT) 16 U/L (0-35); AST (SGOT) 19 U/L (14-36); Albumin 3.9 g/dl (3.5-5.0); Alkaline Phosphatase 75 U/L (38-126); Blood Urea Nitrogen 17 mg/dl (7-17); Calcium 9.4 mg/dl (8.4-10.2); Carbon Dioxide 26 mmol/L (22-30); Chloride 105 mmol/L (98-107); Glucose 96 mg/dl (70-99); Lipase 43 U/L (23-300); Potassium 4.2 mmol/L (3.5-5.1); Sodium 136 mmol/L (135-145); Total Protein 6.9 g/dl (6.3-8.2); eGFR > 60.00
[2025-02-12 18:00] VITALS: BP 104/73; BMI 26.3
--- NOTE | 2025-02-12 18:51 | ED.GENMED ---
History of Present Illness
General
Chief Complaint: Abdominal Symptoms
Source: patient and family (Mother)
Exam Limitations: none
Time Seen by Provider: 02/12/25 18:28
Nursing documentation reviewed up to this point in time: agreed with
History of Present Illness
History of Present Illness:
34-year-old female with a past medical history of Down syndrome, chronic constipation, adenomyosis, hypothyroidism, chronic anemia who presents to the emergency room with her mother for evaluation of abdominal pain. Patient is minimally verbal and
very limited historian due to this; her mother is at bedside and helps provide history. She reports that for the past 2 weeks or so patient has been complaining of abdominal pain. Mother says that she tends to point towards her bellybutton when
asked where the pain is. It seems to be triggered after meals�mother reports that she notices patient will start crying or bearing down saying she is in pain after meals. She does have a history of constipation but mother says that she has been
having bowel movements although it has been 3 days since last bowel movement. No vomiting noted. No fever noted. No vaginal bleeding noted recently per mother.
Past History
Past History
ED Past Medical History: Hypothyroidism, Other (downs syndrome) and Other (Iron deficiency anemia)
Social History
Tobacco: Non-smoker
Alcohol: None
Drug: None
Living: with family
Employment: Employed
Family History
Family History: CAD
Review of Systems
Review of Systems
Unable to obtain full review of systems at this time due to: non-verbal
All Other Systems: Not applicable
Phy Exam
Physical Exam
Physical Exam:
General: Awake, alert, smiling and appropriate
Head: Normocephalic, atraumatic
Eyes: Conjunctiva normal, sclera anicteric
Throat: Airway intact, handling secretions
Neck: Trachea midline, supple without meningismus
Lungs: Clear to auscultation bilaterally, no wheezing, rales, rhonchi
Heart: Regular rate and rhythm, no murmurs, gallops, or rubs
Abd: Soft, non distended, mild diffuse tenderness but no localized tenderness, no peritoneal signs, no palpable masses
Neuro: Grossly intact
Skin: No rash in area of concern
Extremities: Warm and well-perfused
Scores
Heart Failure Risk
Heart Failure Risk Score: Not Applicable
Heart Score for Chest Pain Patients
STEMI patient?: Not applicable
Withdrawal Assessment of Alcohol
Withdrawal Assessment Completed?: Not applicable
Course
Orders/Labs/Results
Orders:
Orders
02/12/25 16:12
Electrocardiogram (*1) Urgent
Reason for Study: Syncope
EKG- Treatment ONCE
Test Result ONCE
02/12/25 16:23
Complete Blood Count/With Diff Urgent
Comprehensive Metabolic Panel Urgent
HCG, Serum Qualitative Screen Urgent
Iron Urgent
Comment: ADD ON
Lipase Urgent
TSH Reflex To Free T4 Urgent
02/12/25 18:51
CT Abd/pelvis W Iv Cont Urgent
Comment:
Reason For Exam: abd pain
02/12/25 20:15
HIV 4th Generation [HIV Combo] Urgent
Hepatitis A IgM Antibody Urgent
Hepatitis B Core Ab, IgM Urgent
Hepatitis B Surface Antibody Urgent
Hepatitis B Surface Antigen Urgent
Hepatitis C Antibody Urgent
02/12/25 21:05
Add On- LAB Urgent
Tests Added?: iron
Abnormal Lab Results
02/12/25
16:23
MCH 32.5 H pg
(27.0-31.0)
02/12/25 16:23
02/12/25 16:23
Vital Signs
Initial and Last Documented VS:
Initial Vital Signs
Temp Pulse Resp BP Pulse Ox
36.3 C 58 18 90/60 100
02/12/25 16:05 02/12/25 16:05 02/12/25 16:05 02/12/25 16:05 02/12/25 16:05
Last Documented Vital Signs
Temp Pulse Resp BP Pulse Ox
36.9 C 66 17 105/61 99
02/12/25 18:00 02/12/25 20:16 02/12/25 20:16 02/12/25 20:15 02/12/25 19:45
MDM/Problems Addressed
Differential Diagnosis Includes:
Appendicitis, diverticulitis, UTI, constipation, gastritis, cholelithiasis, cholecystitis
MDM/Problems Addressed:
34-year-old female presents for evaluation of abdominal pain particularly after eating over the past 2 weeks. Vitals and exam as above. Plan to check labs including a CBC and a CMP, hCG, urinalysis. Will check CT abdomen pelvis. Monitor closely
reassess after the above.
Labs reviewed: CBC and CMP unremarkable. hCG negative. CT abdomen pelvis shows constipation but no other acute abnormalities to account for her symptoms. Certainly sound like it could be related constipation and patient has a history of this.
Stable for discharge follow-up with GI as outpatient. Advised mother to increase laxatives over the next few days. She feels comfortable with this plan. All questions answered.
Chronic conditions affecting care:
Down syndrome, chronic constipation
*Radiology
Radiology exam reviewed: radiology read reviewed
*Pulse Oximetry
SaO2: 100
Oxygen Mode of Delivery: Room air
Patient hypoxic: no (100%)
*EKG
Interpreted by ED Provider?: Yes
Heart Rate: 59
Rate: bradycardiac
Rhythm: sinus
[place]: normal axis
Interval: normal interval
QRS Pattern: normal QRS
Ischemia: no ischemia
*Critical Care Note
Total Time (30-74mins, 75-104mins- exclusive of procedures): Not Applicable
Data Reviewed
Review of Other/Old Records Reveals: Labs and Records
Source: patient and records
ED Attending Note
-
Portions of this chart may have been created with voice recognition software.� Occasional wrong word or��sound alike� substitutions may have occurred due to the inherent limitations of voice recognition software.
Discharge Plan
Departure
Patient Disposition: Home (Routine Discharge)
Date of Disposition: 02/12/25
Time of Disposition: 21:19
Patient with high blood pressure during this ER visit?: No
Discharge Problem:
Constipation
Instructions: Constipation, Adult (DC)
Prescriptions:
No Action
levothyroxine [Synthroid] 125 mcg Tablet
125 mcg PO DAILY
docusate sodium [Colace] 100 mg capsule
100 mg PO DAILY Qty: 30 0RF
Referrals:
Fabien May MD [Family Provider, Family Practice] - Follow up in 5-7 days
Emi Killian MD [Active, Gastroenterology] - Call in 1-3 days for appt
Referral Note: GI doctor
Activity Restrictions/Additional Instructions:
Thank you for visiting the Emergency Department at [facility].
1. Please schedule a follow up appointment as directed. Call first thing tomorrow morning to make an appointment.
2. If indicated, please take your medications as instructed and indicated on discharge paperwork.
3. If any of your symptoms do not improve, or persist, or become more severe within 6-12 hours, please return to the emergency department for further care.
4. Please return to the emergency department if you develop a headache, neck pain/stiffness, fever greater than 100.4F, chest pain, shortness of breath, persistent nausea, vomiting, slurred speech, difficulty walking, numbness/tingling, weakness,
signs of infection or any other symptoms that are worrisome to you.
Please call [phone] if you have any questions.
Interventions
Interventions:
*Risk Screen - Suicide Last Done: 02/12/25 16:05
*General Assessment Last Done: 02/12/25 16:05
*Neglect/Abuse Screening Last Done: 02/12/25 16:05
*ED- Fall Risk Assessment Last Done: 02/12/25 18:00
*ED COVID-19 Vaccine History Last Done: 02/12/25 18:00
CC-Eyupyr-Zosdqsotrv Assessment Last Done: 02/12/25 18:00
Discharge Date and Time
Print Language: YAKUT
[2025-02-12 19:00] VITALS: BP 103/58
[2025-02-12 20:15] VITALS: BP 105/61
[2025-02-12 21:00] VITALS: BP 99/77
[2025-02-12 21:35] LABS: Hepatitis B Surface Antigen Negative (Negative)
[2025-02-12 21:43] LABS: Iron 78 ug/dl (37-170)
[2025-02-12 21:53] LABS: Hepatitis C Antibody Negative (Negative)
== END 2025-02-12 21:37 | disposition home or self-care (01) ==
LOC: EMR 16:03
PROVIDERS: Emergency Medicine; EMERGENCY PHYSICIAN Emergency Medicine; FAMILY PHYSICIAN Family Medicine
DX: K59.00 Constipation, unspecified (principal); E03.9 Hypothyroidism, unspecified; Q90.9 Down syndrome, unspecified
CPT/HCPCS: 99284; 74177; 80053; 83540; 83690; 84443; 84703; 85025; 86705; 86706; 86709; 86803; 87340; 87389; 93005; Q9967

== ENCOUNTER 2025-03-22 09:34 | Outpatient (RCR) | payer OTHER, SELFPAY ==
[2025-03-15 08:00] VITALS: BP 102/60
[2025-03-15] MEDS: INJECTAFER 265 MG IV (08:21)
[2025-03-15 08:27] VITALS: BMI 26.8
[2025-03-15 09:30] VITALS: BP 74/41
[2025-03-22 10:00] VITALS: BP 110/43
[2025-03-22] MEDS: INJECTAFER 265 MG IV (10:11)
[2025-03-22 11:20] VITALS: BP 82/52
== END 2025-03-23 23:59 | disposition home or self-care (01) ==
LOC: OID 09:34
PROVIDERS: ATTENDING PHYSICIAN Family Medicine
DX: D50.9 Iron deficiency anemia, unspecified (principal); Q90.9 Down syndrome, unspecified
CPT/HCPCS: 96365; J1439